=== PATIENT | female | born 1950 | race Caucasian/White ===

== ENCOUNTER 2021-10-10 16:52 | Inpatient (IN) | payer MEDICARE, OTHER ==
[~2021-10-10 16:52] MED LIST: Iopamidol 370 76% 100 ML VIAL ONE
[2021-10-10 19:06] LABS: Hemoglobin 10.9 g/dL (12.0-15.5); Mean Corpuscular HGB CONC 31.9 g/dL (32.0-36.0); Mean Corpuscular Hemoglobin 28.8 pg (27.0-33.0); Mean Corpuscular Volume 90.2 fl (81.6-98.3); Mean Platelet Volume 9.9 fl (7.4-10.4); Platelet Count 317 10x3/uL (150-450); RBC Distribution Width 13.8 % (11.5-14.5); Red Blood Cell (RBC) Count 3.79 10x6/uL (3.90-5.03); White Blood Cell (WBC) Count 21.1 10x3/uL (3.5-10.5)
[2021-10-10 19:08] LABS: MDiff Complete? YES
[2021-10-10] MEDS ORDERED: Piperacillin/Tazobactam 3.375 GM VIAL ONE (19:13)
[2021-10-10 19:18] LABS: ALT (SGPT) 9 U/L (8-55); AST (SGOT) 25 U/L (5-34); Albumin 3.6 g/dL (3.4-4.8); Alkaline Phosphatase 63 U/L (40-110); Anion Gap 13 mmol/L (10-20); BUN (Urea Nitrogen) 40 mg/dL (9.8-20.1); Bilirubin, Total 0.3 mg/dL (0.2-1.2); Calc. Creatinine Clearance 0 mL/min (70-130); Calcium 9.3 mg/dL (7.8-10.44); Carbon Dioxide 22 mmol/L (23-31); Chloride 106 mmol/L (98-107); Estimated GFR 75; Globulin 2.4 g/dL (2.4-3.5); Glucose 86 mg/dL (83-110); Potassium 3.4 mmol/L (3.5-5.1); Sodium 138 mmol/L (136-145)
[2021-10-10 19:29] LABS: Band 4 % (5-11); Lymphocytes 5 % (21-51); Monocytes 4 % (0-10); Neutrophil 87 % (42-75); Platelet Morphology Comment Appears Adequate
[2021-10-10] MEDS ORDERED: Acetaminophen 325 MG TAB PO PRN (22:06)
[2021-10-10] MEDS ORDERED: Senokot S 8.6-50 MG TAB PO PRN (22:06)
[2021-10-10] MEDS ORDERED: Calcium Carbonate 500 MG ChewTAB PO PRN (22:06)
[2021-10-10] MEDS ORDERED: Guaifenesin DM 100-10/5 ML UDCUP PO PRN (22:06)
[2021-10-10] MEDS ORDERED: Ondansetron PF 4 MG/2 ML Vial IVP PRN (22:06)
[2021-10-10] MEDS ORDERED: Lactated Ringer's 1,000 ML IV SCH (22:15)
[2021-10-11] MEDS ORDERED: methylPREDNISolone Sod Succ 40 MG VIAL IVP SCH ×2 (00:30→09:00)
[2021-10-11] MEDS ORDERED: Potassium Chloride 20 MEQ TAB PO SCH (00:30)
[2021-10-11] MEDS: Azithromycin 500 MG in Sodium Chloride 0.9% 250 ML 250 ML IVPB SCH (00:43)
[2021-10-11 01:07] VITALS: BMI 18.8
[2021-10-11] MEDS ORDERED: Piperacillin/Tazobactam 3.375 GM in Sodium Chloride 0.9% 100 ML IVPB SCH (04:00)
[2021-10-11 04:40] LABS: Hemoglobin 10.5 g/dL (12.0-15.5); Mean Corpuscular Hemoglobin 29.1 pg (27.0-33.0); Mean Corpuscular Volume 90.9 fl (81.6-98.3); Mean Platelet Volume 9.6 fl (7.4-10.4); Platelet Count 336 10x3/uL (150-450); RBC Distribution Width 14.1 % (11.5-14.5); Red Blood Cell (RBC) Count 3.61 10x6/uL (3.90-5.03); White Blood Cell (WBC) Count 18.3 10x3/uL (3.5-10.5)
[2021-10-11 04:49] LABS: MDiff Complete? YES
[2021-10-11 04:52] LABS: Band 14 % (5-11); Lymphocytes 1 % (21-51); Monocytes 2 % (0-10); Neutrophil 83 % (42-75)
[2021-10-11 04:53] LABS: Platelet Morphology Comment Appears Adequate; RBC Morphology Normal
[2021-10-11 05:08] LABS: Anion Gap 14 mmol/L (10-20); BUN (Urea Nitrogen) 34 mg/dL (9.8-20.1); Calc. Creatinine Clearance 47 mL/min (70-130); Calcium 9.2 mg/dL (7.8-10.44); Carbon Dioxide 23 mmol/L (23-31); Chloride 111 mmol/L (98-107); Estimated GFR 81; Glucose 90 mg/dL (83-110); Magnesium 2.2 mg/dL (1.6-2.6); Potassium 4.1 mmol/L (3.5-5.1); Sodium 144 mmol/L (136-145)
[2021-10-11] MEDS: Mometasone/Formoterol 200/5 60 PUFF INH SCH ×2 (07:58→19:25)
[2021-10-11] MEDS ORDERED: Enoxaparin Sodium 30 MG/0.3 ML SYRINGE SC SCH (09:00)
[2021-10-11] MEDS ORDERED: buPROPion 75 MG TAB PO SCH (09:00)
[2021-10-11] MEDS ORDERED: predniSONE 20 MG TAB PO SCH (10:00)
[2021-10-11] MEDS: Fluticasone Propionate Nasal Spray 16 gm Bottle NASAL SCH (10:17)
[2021-10-11] MEDS: cefTRIAXone\\ROCEPHIN 2 GM in Sodium Chloride 0.9% 100 ML IVPB SCH (10:17)
[2021-10-11] MEDS: Famotidine 20 MG TAB PO SCH ×2 (10:18→23:18)
[2021-10-11] MEDS: Loratadine 10 MG TAB PO SCH (10:19)
[2021-10-11 12:49] LABS: Hemoglobin A1c 5.4 % (4.0-6.0)
[2021-10-11 13:10] LABS: Legionella Urinary Ag Negative (Negative); Strep pneumo Urine Ag NEGATIVE (NEGATIVE)
[2021-10-11] MEDS: Benzonatate 100 MG CAP PO SCH ×2 (17:51→23:18)
[2021-10-11] MEDS: Pramipexole Di-HCl 0.25 MG TAB PO SCH (23:18)
[2021-10-11] MEDS: FLUoxetine HCl 20 MG CAP PO SCH (23:18)
[2021-10-11] MEDS: Montelukast Sodium 10 mg Tablet PO SCH (23:18)
[2021-10-12] MEDS: Azithromycin 500 MG in Sodium Chloride 0.9% 250 ML 250 ML IVPB SCH (00:48)
[2021-10-12 04:27] LABS: #Monocytes 0.6 10x3/uL (0.0-1.1); #Neutrophils 8.2 10x3/uL (1.5-8.4); %Basophils 0.2 % (0.0-2.0); %Eosinophils 0.2 % (0.0-6.0); %Lymphocytes 13.1 % (18.0-47.0); %Monocytes 5.8 % (0.0-10.0); %Neutrophils 79.9 % (40.0-75.0); Hemoglobin 8.3 g/dL (12.0-15.5); Mean Corpuscular Hemoglobin 29.7 pg (27.0-33.0); Mean Corpuscular Volume 92.8 fl (81.6-98.3); Mean Platelet Volume 9.8 fl (7.4-10.4); Platelet Count 263 10x3/uL (150-450); RBC Distribution Width 14.3 % (11.5-14.5); Red Blood Cell (RBC) Count 2.79 10x6/uL (3.90-5.03); White Blood Cell (WBC) Count 10.2 10x3/uL (3.5-10.5)
[2021-10-12 04:43] LABS: ALT (SGPT) 9 U/L (8-55); AST (SGOT) 20 U/L (5-34); Albumin 2.7 g/dL (3.4-4.8); Alkaline Phosphatase 51 U/L (40-110); Anion Gap 13 mmol/L (10-20); BUN (Urea Nitrogen) 24 mg/dL (9.8-20.1); Bilirubin, Direct 0.1 mg/dL (0.1-0.3); Bilirubin, Total 0.1 mg/dL (0.2-1.2); Calc. Creatinine Clearance 53 mL/min (70-130); Calcium 8.8 mg/dL (7.8-10.44); Carbon Dioxide 23 mmol/L (23-31); Cardiac Risk 4.8 (Less than 4.5); Chloride 111 mmol/L (98-107); Cholesterol 121 mg/dl (< 200 Desired); Estimated GFR 92; Glucose 112 mg/dL (83-110); HDL Cholesterol 25 mg/dL (>60 Neg Risk); LDL Cholesterol, Calculated 77 mg/dL; Magnesium 1.9 mg/dL (1.6-2.6); Potassium 3.6 mmol/L (3.5-5.1); Protein, Total 5.1 g/dL (5.8-8.1); Sodium 143 mmol/L (136-145); Triglycerides 94 mg/dL (Less than 150)
[2021-10-12] MEDS: Mometasone/Formoterol 200/5 60 PUFF INH SCH ×2 (07:25→20:40)
[2021-10-12] MEDS ORDERED: Bupropion 100 MG SR TAB PO SCH (09:00)
[2021-10-12] MEDS ORDERED: Enoxaparin Sodium 40 MG/0.4 ML SYRINGE SC SCH (09:00)
[2021-10-12] MEDS: cefTRIAXone\\ROCEPHIN 2 GM in Sodium Chloride 0.9% 100 ML IVPB SCH (11:00)
[2021-10-12] MEDS: predniSONE 50 MG TAB PO SCH (11:00)
[2021-10-12] MEDS: Loratadine 10 MG TAB PO SCH (11:07)
[2021-10-12] MEDS: Benzonatate 100 MG CAP PO SCH ×3 (11:07→22:07)
[2021-10-12] MEDS: Pantoprazole 40 MG VIAL IVP SCH ×2 (11:08→22:08)
[2021-10-12] MEDS: FLUoxetine HCl 20 MG CAP PO SCH ×2 (11:08→22:07)
[2021-10-12] MEDS: Fluticasone Propionate Nasal Spray 16 gm Bottle NASAL SCH (11:08)
[2021-10-12] MEDS: Pramipexole Di-HCl 0.25 MG TAB PO SCH (22:07)
[2021-10-12] MEDS: Montelukast Sodium 10 mg Tablet PO SCH (22:07)
[2021-10-12] MEDS: Bupropion 100 MG SR TAB PO SCH (22:08)
[2021-10-13] MEDS: Azithromycin 500 MG in Sodium Chloride 0.9% 250 ML 250 ML IVPB SCH (00:45)
[2021-10-13 04:02] LABS: Hemoglobin 9.4 g/dL (12.0-15.5); Mean Corpuscular HGB CONC 32.2 g/dL (32.0-36.0); Mean Corpuscular Hemoglobin 29.3 pg (27.0-33.0); Mean Platelet Volume 9.4 fl (7.4-10.4); Platelet Count 304 10x3/uL (150-450); RBC Distribution Width 14.3 % (11.5-14.5); Red Blood Cell (RBC) Count 3.21 10x6/uL (3.90-5.03)
[2021-10-13 04:04] LABS: Anion Gap 14 mmol/L (10-20); BUN (Urea Nitrogen) 13 mg/dL (9.8-20.1); Calc. Creatinine Clearance 53 mL/min (70-130); Calcium 8.8 mg/dL (7.8-10.44); Carbon Dioxide 24 mmol/L (23-31); Chloride 109 mmol/L (98-107); Estimated GFR 92; Glucose 123 mg/dL (83-110); Magnesium 1.8 mg/dL (1.6-2.6); Potassium 3.3 mmol/L (3.5-5.1); Sodium 144 mmol/L (136-145)
[2021-10-13 04:07] LABS: MDiff Complete? YES
[2021-10-13 04:59] LABS: Band 7 % (5-11); Lymphocytes 13 % (21-51); Monocytes 7 % (0-10); Neutrophil 73 % (42-75)
[2021-10-13 05:00] LABS: Platelet Morphology Comment Appears Adequate; RBC Morphology Normal
[2021-10-13] MEDS: Mometasone/Formoterol 200/5 60 PUFF INH SCH (07:00)
[2021-10-13] MEDS: Benzonatate 100 MG CAP PO SCH ×2 (09:48→16:55)
[2021-10-13] MEDS: predniSONE 50 MG TAB PO SCH (09:48)
[2021-10-13] MEDS: FLUoxetine HCl 20 MG CAP PO SCH (09:49)
[2021-10-13] MEDS: Fluticasone Propionate Nasal Spray 16 gm Bottle NASAL SCH (09:49)
[2021-10-13] MEDS: Bupropion 100 MG SR TAB PO SCH (09:49)
[2021-10-13] MEDS: Loratadine 10 MG TAB PO SCH (09:50)
[2021-10-13] MEDS: Pantoprazole 40 MG VIAL IVP SCH (09:50)
[2021-10-13] MEDS: cefTRIAXone\\ROCEPHIN 2 GM in Sodium Chloride 0.9% 100 ML IVPB SCH (10:00)
[2021-10-13 17:42] VITALS: BP 152/80; TEMP 98.2
[2021-10-14 15:21] LABS: Campy jejuni + coli by PCR Negative (Negative); STEC Shiga Toxin 1+2 Negative (Negative); Salmonella spp. by PCR Negative (Negative); Shigella spp + EIEC by PCR Negative (Negative)
[2021-10-17 23:13] LABS: Norovirus GI Negative (Negative); Norovirus GII Negative (Negative)
== END 2021-10-13 18:27 | disposition home or self-care (01) | DRG 871 ==
LOC: CSHERS 16:52 → CSHTELE 10-11 00:13
PROVIDERS: ADMIT Student in an Organized Health Care Education/Training Program; ATTEND Family Medicine
DX: A41.9 Sepsis, unspecified organism (principal); J18.9 Pneumonia, unspecified organism; R64 Cachexia; J45.21 Mild intermittent asthma with (acute) exacerbation; E44.0 Moderate protein-calorie malnutrition; Z68.1 Body mass index [BMI] 19.9 or less, adult; F31.9 Bipolar disorder, unspecified; G25.81 Restless legs syndrome; E87.6 Hypokalemia; Z20.822 Contact with and (suspected) exposure to COVID-19; E83.42 Hypomagnesemia; D64.9 Anemia, unspecified; Z90.710 Acquired absence of both cervix and uterus; Z87.891 Personal history of nicotine dependence
CPT/HCPCS: 36415; 71046; 71275; 80048; 80053; 80061; 80076; 82274; 83036; 83605; 83735; 83880; 84145; 84439; 84443; 84484; 85025; 86140; 86850; 86900; 86901; 87040; 87081; 87324; 87449; 87505; 87798; 87899; 94640; 94664; 94760; C9113; J0456; J0696; J1650; J2543; J2920; J3370; J3490; J7050; J7120; J7512; J7620; Q9967